=== PATIENT | female | born 1965 | race Caucasian/White ===

== ENCOUNTER 2021-05-03 08:41 | Emergency (ER) | payer BC, OTHER ==
[2021-05-03 08:55] VITALS: BP 139/88; PULSE 100; TEMP 98.1; BMI 22.3
[2021-05-03 09:37] LABS: EPITHELIAL CELLS FEW /hpf
== END 2021-05-03 09:59 | disposition home or self-care (01) ==
LOC: FER 08:41
DX: N30.00 Acute cystitis without hematuria (principal)
CPT/HCPCS: 81003; 81015; 87086; 87186; 99283-25

== ENCOUNTER 2021-05-09 12:14 | Inpatient (IN) | payer OTHER ==
[2021-05-09] MEDS ORDERED: SODIUM CHLORIDE 0.9% 500 ML INFUS.BAG IV ONE (12:35)
[2021-05-09] MEDS ORDERED: ACETAMINOPHEN 1000 MG/100 ML BAG IVPB ONE (12:35)
[2021-05-09] MEDS ORDERED: ONDANSETRON 4 MG/2 ML VIAL IVPUSH ONE (12:35)
[2021-05-09] MEDS ORDERED: ACETAMINOPHEN INJECTION 100 ML IVPB ONE (12:59)
[2021-05-09] MEDS ORDERED: ONDANSETRON 4 MG/2 ML VIAL ONE (13:00)
[2021-05-09] MEDS ORDERED: CEFTRIAXONE 1 GM in DEXTROSE 5%-WATER - 50 ML IVPB ONE (13:27)
[2021-05-09] MEDS ORDERED: morphine CARPU-JECT 2 MG/1 ML DISP.SYRIN IVPUSH ONE ×3 (13:36→15:48)
[2021-05-09 13:37] LABS: ALBUMIN 3.6 g/dl (3.4-5.0); BILIRUBIN,TOTAL 0.4 mg/dl (0.2-1); CALCIUM 9.2 mg/dl (8.5-10); CREATININE 0.8 mg/dl (0.55-1.3); MAGNESIUM 1.6 mg/dL (1.8-2.4); TOT PROT 6.5 g/dl (6.4-8.2)
[2021-05-09] MEDS ORDERED: morphine CARPU-JECT 4 MG/1 ML DISP.SYRIN IVPUSH ONE (13:37)
[2021-05-09] MEDS ORDERED: morphine SULFATE 4 MG/ML VIAL ONE ×4 (13:37→18:56)
[2021-05-09] MEDS ORDERED: cefTRIAXone SODIUM 1 GM VIAL ONE (13:38)
[2021-05-09 14:46] LABS: EPITHELIAL CELLS FEW /hpf
[2021-05-09 15:07] LABS: BASO % 0.8 % (0-2.0); EOS % 0.3 % (0-4.5); HEMATOCRIT 34.1 % (32.4-45.2); HEMOGLOBIN 11.1 GM/dL (10.7-15.3); LYMPH % 8.3 % (8-40); MCHC 32.5 g/dl (32.0-36.0); MEAN CELL VOLUME 82.9 fl (80-96); MONO % 7.5 % (3.8-10.2); NEUT % 83.1 % (42.8-82.8); PLATELET COUNT 407 10^3/uL (134-434); RBC 4.12 M/mm3 (3.60-5.2); RDW 16.5 % (11.6-15.6); WHITE BLOOD COUNT 14.6 K/mm3 (4.0-10.0)
[2021-05-09] MEDS ORDERED: SODIUM CHLORIDE 1,000 ML IV SCH (16:00)
[2021-05-09] MEDS ORDERED: KETOROLAC TROMETHAMINE 30 MG/1 ML VIAL ONE (16:15)
[2021-05-09] MEDS: KETOROLAC TROMETHAMINE 30 MG/1 ML VIAL IVPUSH PRN (16:25)
[2021-05-09] MEDS: morphine SULFATE 4 MG/ML VIAL IVPUSH PRN ×3 (16:37→23:16)
[2021-05-09 17:04] LABS: INR 0.87 (0.83-1.09); PROTHROMBIN TIME (PATIENT) 9.6 SEC (9.7-13.0)
[2021-05-09] MEDS ORDERED: TAMSULOSIN HCL 0.4 MG CAP PO ONE (20:49)
[2021-05-09] MEDS ORDERED: POLYETHYLENE GLYCOL 3350 119 GM BTL PO PRN (21:05)
[2021-05-09] MEDS ORDERED: ACETAMINOPHEN 325 MG TABLET (FP) PO PRN (21:05)
[2021-05-09] MEDS ORDERED: TAMSULOSIN HCL 0.4 MG CAP ONE (21:06)
[2021-05-10] MEDS ORDERED: DEXTROSE 5%-NORMAL SALINE 1,000 ML IV SCH
[2021-05-10] MEDS: KETOROLAC TROMETHAMINE 30 MG/1 ML VIAL IVPUSH PRN (01:08)
[2021-05-10] MEDS: morphine SULFATE 4 MG/ML VIAL IVPUSH PRN (03:28)
[2021-05-10 04:18] VITALS: BMI 23.8
[2021-05-10] MEDS ORDERED: MAGNESIUM SULFATE IN WATER 2 GM/50 ML IVPB IVPB ONE (06:00)
[2021-05-10] MEDS ORDERED: DEXTROSE 5%-WATER - 50 ML IVPB ONE ×2 (08:53→18:20)
[2021-05-10] MEDS ORDERED: cefTRIAXone SODIUM 1 GM VIAL ONE (08:53)
[2021-05-10] MEDS ORDERED: TAMSULOSIN HCL 0.4 MG CAP PO SCH (09:00)
[2021-05-10 09:19] LABS: BASO % 0.4 % (0-2.0); EOS % 0.2 % (0-4.5); HEMATOCRIT 30.2 % (32.4-45.2); HEMOGLOBIN 9.7 GM/dL (10.7-15.3); LYMPH % 4.5 % (8-40); MCH 26.8 pg (25.7-33.7); MCHC 32.2 g/dl (32.0-36.0); MEAN CELL VOLUME 83.2 fl (80-96); MONO % 7.2 % (3.8-10.2); NEUT % 87.7 % (42.8-82.8); PLATELET COUNT 334 10^3/uL (134-434); RBC 3.63 M/mm3 (3.60-5.2); RDW 16.4 % (11.6-15.6); WHITE BLOOD COUNT 23.3 K/mm3 (4.0-10.0)
[2021-05-10 09:59] LABS: MAGNESIUM 2.3 mg/dL (1.8-2.4)
[2021-05-10] MEDS ORDERED: GABAPENTIN ENACARBIL 300 MG PO SCH (10:00)
[2021-05-10] MEDS ORDERED: CEFTRIAXONE 1 GM in DEXTROSE 5%-WATER - 50 ML IVPB SCH (10:00)
[2021-05-10 10:02] LABS: CREATININE 1.3 mg/dL (0.55-1.3)
[2021-05-10 11:02] LABS: ANISOCYTOSIS 2+; MACROCYTOSIS 0; PLATELET ESTIMATE NORMAL
[2021-05-10] MEDS ORDERED: MIDAZOLAM HCL 2 MG/2 ML SINGLE DOSE VIAL ONE (14:07)
[2021-05-10] MEDS ORDERED: SUCCINYLCHOLINE CHLORIDE 200 MG/10 ML SYRINGE ONE (14:16)
[2021-05-10] MEDS ORDERED: KETOROLAC TROMETHAMINE 30 MG/1 ML VIAL ONE (14:28)
[2021-05-10] MEDS ORDERED: DEXAMETHASONE SOD PHOSPHATE 4 MG/1 ML VIAL ONE (14:28)
[2021-05-10] MEDS ORDERED: ONDANSETRON 4 MG/2 ML VIAL IVPUSH PRN (14:45)
[2021-05-10] MEDS ORDERED: LACTATED RINGERS SOLUTION 1,000 ML IV SCH (14:45)
[2021-05-10] MEDS ORDERED: morphine SULFATE 4 MG/ML VIAL IVPUSH PRN (15:06)
[2021-05-10] MEDS ORDERED: POLYETHYLENE GLYCOL (HEALTHYLAX) 3350 17 GM PACKET PO PRN (15:06)
[2021-05-10] MEDS ORDERED: KETOROLAC TROMETHAMINE 30 MG/1 ML VIAL IVPUSH PRN (15:06)
[2021-05-10] MEDS: SODIUM CHLORIDE 1,000 ML IV SCH ×2 (15:06→20:30)
[2021-05-10] MEDS ORDERED: ACETAMINOPHEN 325 MG TABLET (FP) PO PRN (15:06)
[2021-05-10] MEDS ORDERED: ACETAMINOPHEN 1000 MG/100 ML BAG IVPB ONE (15:44)
[2021-05-10] MEDS ORDERED: ACETAMINOPHEN 1000 MG/100 ML BAG IVPB PRN (16:07)
[2021-05-10 16:20] LABS: BASO % 1.1 % (0-2.0); EOS % 1.2 % (0-4.5); HEMATOCRIT 37.1 % (32.4-45.2); HEMOGLOBIN 11.8 GM/dL (10.7-15.3); LYMPH % 9.8 % (8-40); MCHC 31.8 g/dl (32.0-36.0); MEAN CELL VOLUME 84.9 fl (80-96); MEAN PLT VOLUME 6.9 fl (7.5-11.1); MONO % 1.4 % (3.8-10.2); NEUT % 86.5 % (42.8-82.8); PLATELET COUNT 314 10^3/uL (134-434); RBC 4.37 M/mm3 (3.60-5.2); RDW 16.7 % (11.6-15.6); WHITE BLOOD COUNT 6.4 K/mm3 (4.0-10.0)
[2021-05-10] MEDS: PIPERACILLIN/TAZOB 3.375 GM 3.375 GM in DEXTROSE 5%-WATER - 50 ML IVPB SCH ×2 (16:55→20:02)
[2021-05-10 17:13] LABS: BLOOD UREA NITROGEN 18.6 mg/dL (7-18); CALCIUM 7.3 mg/dL (8.5-10.1)
[2021-05-10 17:16] LABS: CREATININE 1.2 mg/dL (0.55-1.3)
[2021-05-10 17:18] LABS: TOT PROT 4.7 g/dl (6.4-8.2)
[2021-05-10 17:24] LABS: BILIRUBIN,TOTAL 0.3 mg/dL (0.2-1)
[2021-05-10] MEDS ORDERED: VASOPRESSIN 20 UNITS/ML VIAL IV ONE ×2 (18:12→18:13)
[2021-05-10] MEDS ORDERED: VASOPRESSIN 40 UNITS/100 ML BAG IV SCH (18:15)
[2021-05-10] MEDS ORDERED: PIPERACILLIN/TAZOBACTAM 3.375 GM VIAL IVPB ONE (18:20)
[2021-05-10] MEDS: VASOPRESSIN 40 UNITS/100 ML BAG IV SCH (18:30)
[2021-05-10] MEDS ORDERED: MELATONIN 5 MG TABLETS PO PRN (22:26)
[2021-05-10] MEDS ORDERED: MAG HYDROX/AL HYDROX/SIMETH 30 ML UNIT-DOSE CUP PO PRN (22:26)
[2021-05-10] MEDS ORDERED: SODIUM CHLORIDE 1,000 ML IV STA (22:30)
[2021-05-11] MEDS ORDERED: PIPERACILLIN/TAZOBACTAM 3.375 GM VIAL IVPB ONE ×3 (02:28→16:57)
[2021-05-11] MEDS ORDERED: DEXTROSE 5%-WATER - 50 ML IVPB ONE ×4 (02:28→16:57)
[2021-05-11] MEDS: PIPERACILLIN/TAZOB 3.375 GM 3.375 GM in DEXTROSE 5%-WATER - 50 ML IVPB SCH ×3 (02:29→17:01)
[2021-05-11] MEDS: VASOPRESSIN 40 UNITS/100 ML BAG IV SCH (02:30)
[2021-05-11 07:17] LABS: CALCIUM 7.2 mg/dL (8.5-10.1)
[2021-05-11 07:18] LABS: MAGNESIUM 2.5 mg/dL (1.8-2.4)
[2021-05-11 07:21] LABS: CREATININE 1.1 mg/dL (0.55-1.3); PHOSPHOROUS 3.3 mg/dL (2.5-4.9)
[2021-05-11 07:22] LABS: BILIRUBIN,TOTAL 0.4 mg/dL (0.2-1)
[2021-05-11 07:23] LABS: TOT PROT 4.8 g/dl (6.4-8.2)
[2021-05-11] MEDS ORDERED: TAMSULOSIN HCL 0.4 MG CAP PO SCH (08:30)
[2021-05-11 08:58] LABS: BASO % 0.4 % (0-2.0); EOS % 0.1 % (0-4.5); HEMATOCRIT 30.1 % (32.4-45.2); HEMOGLOBIN 9.6 GM/dL (10.7-15.3); LYMPH % 5.5 % (8-40); MCH 26.7 pg (25.7-33.7); MCHC 31.8 g/dl (32.0-36.0); MEAN CELL VOLUME 84.2 fl (80-96); MEAN PLT VOLUME 7.8 fl (7.5-11.1); MONO % 4.4 % (3.8-10.2); NEUT % 89.6 % (42.8-82.8); PLATELET COUNT 280 10^3/uL (134-434); RBC 3.58 M/mm3 (3.60-5.2); RDW 17.3 % (11.6-15.6); WHITE BLOOD COUNT 19.8 K/mm3 (4.0-10.0)
[2021-05-11] MEDS ORDERED: cefTRIAXone SODIUM 1 GM VIAL ONE (09:11)
[2021-05-11] MEDS ORDERED: CEFTRIAXONE 1 GM in DEXTROSE 5%-WATER - 50 ML IVPB SCH (10:00)
[2021-05-11] MEDS ORDERED: GABAPENTIN ENACARBIL PO SCH (10:00)
[2021-05-11] MEDS ORDERED: SODIUM CHLORIDE 500 ML IV STA (13:04)
[2021-05-11] MEDS ORDERED: NICOTINE POLACRILEX 4 MG GUM BUC PRN (15:05)
[2021-05-11] MEDS ORDERED: MAG HYDROX/AL HYDROX/SIMETH 30 ML UNIT-DOSE CUP PO PRN (15:31)
[2021-05-11] MEDS ORDERED: morphine SULFATE 4 MG/ML VIAL IVPUSH PRN (15:31)
[2021-05-11] MEDS ORDERED: MELATONIN 5 MG TABLETS PO PRN (15:31)
[2021-05-11] MEDS ORDERED: SODIUM CHLORIDE 1,000 ML IV SCH (15:31)
[2021-05-11] MEDS ORDERED: ACETAMINOPHEN 325 MG TABLET (FP) PO PRN (15:31)
[2021-05-11] MEDS ORDERED: ACETAMINOPHEN 1000 MG/100 ML BAG IVPB PRN (15:31)
[2021-05-11] MEDS ORDERED: POLYETHYLENE GLYCOL (HEALTHYLAX) 3350 17 GM PACKET PO PRN (15:31)
[2021-05-11] MEDS: KETOROLAC TROMETHAMINE 30 MG/1 ML VIAL IVPUSH PRN (17:01)
[2021-05-11] MEDS: ENOXAPARIN NA (PORCINE) 40 MG/0.4 ML DISP.SYRIN SQ SCH (17:01)
[2021-05-11] MEDS: SODIUM CHLORIDE 1,000 ML IV SCH (17:18)
[2021-05-12] MEDS ORDERED: PIPERACILLIN/TAZOBACTAM 3.375 GM VIAL IVPB ONE ×2 (01:23→08:40)
[2021-05-12] MEDS ORDERED: DEXTROSE 5%-WATER - 50 ML IVPB ONE ×2 (01:24→08:40)
[2021-05-12] MEDS: KETOROLAC TROMETHAMINE 30 MG/1 ML VIAL IVPUSH PRN (02:18)
[2021-05-12] MEDS: PIPERACILLIN/TAZOB 3.375 GM 3.375 GM in DEXTROSE 5%-WATER - 50 ML IVPB SCH ×2 (02:20→09:39)
[2021-05-12] MEDS ORDERED: TAMSULOSIN HCL 0.4 MG CAP PO SCH (08:30)
[2021-05-12 09:12] LABS: HEMATOCRIT 30.4 % (32.4-45.2); HEMOGLOBIN 9.7 GM/dL (10.7-15.3); MCH 26.3 pg (25.7-33.7); MCHC 31.8 g/dl (32.0-36.0); MEAN CELL VOLUME 82.8 fl (80-96); MEAN PLT VOLUME 7.1 fl (7.5-11.1); PLATELET COUNT 370 10^3/uL (134-434); RBC 3.67 M/mm3 (3.60-5.2); RDW 16.9 % (11.6-15.6); WHITE BLOOD COUNT 19.8 K/mm3 (4.0-10.0)
[2021-05-12] MEDS: ENOXAPARIN NA (PORCINE) 40 MG/0.4 ML DISP.SYRIN SQ SCH (09:39)
[2021-05-12] MEDS ORDERED: GABAPENTIN ENACARBIL PO SCH (10:00)
[2021-05-12 13:11] LABS: BLOOD UREA NITROGEN 19.3 mg/dL (7-18); MAGNESIUM 2.6 mg/dL (1.8-2.4)
[2021-05-12 13:14] LABS: CREATININE 0.9 mg/dL (0.55-1.3)
[2021-05-12 13:16] LABS: BILIRUBIN,TOTAL 0.5 mg/dL (0.2-1); TOT PROT 5.7 g/dl (6.4-8.2)
[2021-05-12 13:20] LABS: ALBUMIN 2.5 g/dl (3.4-5.0); CALCIUM 8.4 mg/dL (8.5-10.1)
[2021-05-12 15:07] VITALS: BP 127/77; PULSE 72; TEMP 97.5
== END 2021-05-12 11:46 | disposition left against medical advice (07) | DRG 661 ==
LOC: FER 12:14 → J8W 22:00 → JICU 05-10 20:10 → J7W 05-11 15:27
PROVIDERS: ADMIT Hospitalist; ATTEND Nurse Practitioner Acute Care
PROC: 0T788DZ Dilation of Bilateral Ureters with Intraluminal Device, Via Natural or Artificial Opening Endoscopic (ICD-10-PCS; principal; 2021-05-10 13:00)
DX: N13.6 Pyonephrosis (principal); M48.02 Spinal stenosis, cervical region; I95.9 Hypotension, unspecified
CPT/HCPCS: 36415; 71045-TC-FY; 74177-TC; 76000-TC-FY; 80048; 80053; 81003; 81015; 83735; 84100; 85025; 85027; 85610; 85730; 86850; 86900; 86901; 87040; 87086; 87186; 93005; 93010; 94760; 99285-25; C9803; J0131; J3490; Q9967; U0003; U0005